=== PATIENT | female | born 1980 | race Caucasian/White ===

== ENCOUNTER → 2016-10-31 | Outpatient (CLI) | payer BC ==
[2016-11-01 15:09] LABS: PARASITIC EXAM FIN 1533 (())
== END ==
LOC: LAB 13:16
PROVIDERS: ATTEND Physician Assistant Medical
DX: R19.7 Diarrhea, unspecified (principal); R10.84 Generalized abdominal pain
CPT/HCPCS: 87046; 87177; 87205; 87209; 87328; 87329; 87493